=== PATIENT | male | born 1995 | race American Indian/Alaskan Native ===

== ENCOUNTER 2019-05-19 11:18 | Emergency (ER) | payer MEDICAID, OTHER ==
--- NOTE | 2019-05-19 12:27 | Emergency Department Report ---
Blank Doc - Documentation Documentation: This is a 23-year-old male that presents with vomiting and diarrhea. This initial assessment/diagnostic orders/clinical plan/treatment(s) is/are subject to change based on patient's health status, clinical progression and re- assessment by fellow clinical providers in the ED. Further treatment and workup at subsequent clinical providers discretion. Patient/guardians urged not to elope from the ED as their condition may be serious if not clinically assessed and managed. Initial orders include: 1- Patient sent to [facility] for further evaluation and treatment 2- labs 3- XR abd
[2019-05-19 13:02] LABS: Bilirubin,Urine NEG (Negative); Blood,Urine NEG (Negative); Color,Urine Yellow (Yellow); Mucus,Urine 2+ /HPF; Protein,Urine <15 mg/dL mg/dL (Negative); Urobilinogen,Urine < 2.0 mg/dL (<2.0)
--- NOTE | 2019-05-19 13:15 | XRay Report ---
PROCEDURE: ABDOMEN FLAT AND UPRIGHT WITH SINGLE VIEW CHEST HISTORY: Nausea and vomiting COMPARISON: None. TECHNIQUE: Supine and upright abdominal as well as single view chest radiographs obtained. FINDINGS: Lungs: The lungs are clear. The lung volumes are normal. Pleural Effusion: No evidence of a pleural effusion is seen. Pneumothorax: No evidence of pneumothorax is seen. Cardiac: The heart size is normal. Mediastinal silhouette: The mediastinal silhouette is normal. Hilar regions: The hilar regions are normal in appearance. Pulmonary vascularity: The pulmonary vascularity is normal in appearance. Trachea: The trachea is midline. Skeletal structures: The skeletal structures are normal in appearance. Support hardware: None. Additional findings: None. Bowel: The bowel gas pattern is normal in appearance. No evidence of obstruction is seen. No evidence of free air is identified. Calcifications: No abnormal calcifications over the kidneys or along the course of the ureters are se en. No phleboliths in the pelvis are seen. Osseous Structures: The skeletal structures are unremarkable in appearance. Additional findings: None. IMPRESSION: Normal abdomen and chest exams. Signer Name: Chava Celis MD Signed: 05/19/2019 1:11 PM Workstation Name: [id number]
[2019-05-19 13:34] LABS: Basophils % (Auto) 0.6 % (0.0-1.8); Eosinophils % (Auto) 0.7 % (0.0-4.3); Hematocrit 42.8 % (35.5-45.6); Hemoglobin 14.4 gm/dl (11.8-15.2); Lymphocytes # (Auto) 1.6 K/mm3 (1.2-5.4); Lymphocytes % (Auto) 33.4 % (13.4-35.0); Mean Corpuscular HGB Conc 34 % (32-34); Mean Corpuscular Volume 84 fl (84-94); Monocytes # (Auto) 0.3 K/mm3 (0.0-0.8); Monocytes % (Auto) 5.6 % (0.0-7.3); Platelet Count 206 K/mm3 (140-440); Red Blood Count 5.12 M/mm3 (3.65-5.03); Red Cell Distribution Width 14.7 % (13.2-15.2)
[2019-05-19 16:14] LABS: Alanine Aminotransferase 19 units/L (7-56); BUN/Creatinine Ratio 15; Blood Urea Nitrogen 12 mg/dL (9-20); Calcium 9.7 mg/dL (8.4-10.2); Hemolysis Index 23
[2019-05-19] MEDS ORDERED: ZOFRAN ODT PO ONE (16:43)
[2019-05-19] MEDS ORDERED: BENTYL PO ONE (16:43)
--- NOTE | 2019-05-19 16:45 | Emergency Department Report ---
Vomiting/Diarrhea - HPI Chief Complaint: Nausea/Vomiting/Diarrhea Stated Complaint: VOMITING Time Seen by Provider: 05/19/19 12:25 Duration: 2 Days Severity: mild Nausea/Vomiting Severity: Mild Diarrhea Severity: None Pain Severity: None Symptoms: No Watery Diarrhea, No Bloody diarrhea, No Fever, No Able to Tolerate Fluids, No Recent Unusual Foods, No Recent Untreated Water, No Recent use of Antibiotics, No Family w/ Similar Symptoms, No Contacts w/ Similar Symptoms, No Rash, No Hematuria, No Recent URI Symptoms Other History: 23 YO COMES TO ER WITH 2 DAY HX OF N/V. NO DIARRHEA. NO FEVER. NO CHILLS. NO N/V IN ER FOR THE LAST 5 HOURS. AMBULATORY WITH STABLE VS. ED Review of Systems ROS: Stated complaint: VOMITING Other details as noted in HPI Comment: All other systems reviewed and negative ED Past Medical Hx - Past Medical History Previous Medical History?: No Additional medical history: HEART MURMUR - Surgical History Past Surgical History?: Yes Additional Surgical History: umbilical hernia repair - Family History Family history: no significant - Social History Smoking Status: Never Smoker Substance Use Type: None - Medications Home Medications: Home Medications Medication Instructions Recorded Confirmed Last Taken Type Ondansetron [Zofran Odt] 4 mg PO Q8HR PRN #10 tab.rapdis 05/19/19 Unknown Rx Vomiting Diarrhea Exam - Exam General: Vital signs noted. No distress. Alert and acting appropriately. HEENT: No Pharyngeal Erythema Neck: No Adenopathy, No Rigidity Lungs: Yes Clear Lung Sounds, Yes Good Air Exchange, No Wheezes Heart exam: Regular: Yes, Murmur: No Abdomen: Tenderness: No, Peritoneal Signs: No, Distention: No, Hyperactive Bowel sounds: No Skin exam: Rash: No Neurologic: Alert and oriented, no deficits. Musculoskeletal: Unremarkable. ED Course Vital Signs 05/19/19 05/19/19 12:26 16:26 Temperature 98.3 F 97.5 F L Pulse Rate 62 52 L Respiratory 18 16 Rate Blood Pressure 117/74 Blood Pressure 116/54 [Left] O2 Sat by Pulse 99 100 Oximetry ED Medical Decision Making - Lab Data Result diagrams: 05/19/19 12:57 05/19/19 12:57 - Radiology Data Radiology results: report reviewed, image reviewed - Medical Decision Making Labs 05/19/19 05/19/19 05/19/19 12:40 12:57 12:57 WBC 4.9 RBC 5.12 H Hgb 14.4 Hct 42.8 MCV 84 MCH 28 MCHC 34 RDW 14.7 Plt Count 206 Lymph % (Auto) 33.4 [place] % (Auto) 5.6 Eos % (Auto) 0.7 Baso % (Auto) 0.6 Lymph # 1.6 [place] # 0.3 Eos # 0.0 Baso # 0.0 Seg Neutrophils % 59.7 Seg Neutrophils # 2.9 Sodium 139 Potassium 4.1 Chloride 100.0 Carbon Dioxide 24 Anion Gap 19 BUN 12 Creatinine 0.8 Estimated GFR > 60 BUN/Creatinine Ratio 15 Glucose 98 Calcium 9.7 Total Bilirubin 1.10 AST 23 ALT 19 Alkaline Phosphatase 70 Total Protein 8.1 Albumin 5.0 Albumin/Globulin Ratio 1.6 Lipase 18 Urine Color Yellow Urine Turbidity Clear Urine pH 6.0 Ur Specific [place] 1.027 Urine Protein <15 mg/dl Urine Glucose (UA) Neg Urine Ketones Neg Urine Blood Neg Urine Nitrite Neg Urine Bilirubin Neg Urine Urobilinogen < 2.0 Ur Leukocyte Esterase Neg Urine WBC (Auto) 1.0 Urine RBC (Auto) 3.0 U Epithel Cells (Auto) < 1.0 Urine Mucus 2+ Vital Signs 05/19/19 05/19/19 12:26 16:26 Temperature 98.3 F 97.5 F L Pulse Rate 62 52 L Respiratory 18 16 Rate Blood Pressure 117/74 Blood Pressure 116/54 [Left] O2 Sat by Pulse 99 100 Oximetry LABS NOTED UA NOTED MEDICATED WITH ZOFRAN AND TAKING PO VSS NO FEVER NON TOXIC DC HOME WITH PCP FOLLOW UP - Differential Diagnosis RO ACUTE ABD Critical care attestation.: If time is entered above; I have spent that time in minutes in the direct care of this critically ill patient, excluding procedure time. ED Disposition Clinical Impression: Gastroenteritis Disposition: DC-01 TO HOME OR SELFCARE Is pt being admited?: No Does the pt Need Aspirin: No Condition: Stable Instructions: Gastroenteritis (ED) Additional Instructions: HYDRATE WELL WITH WATER MEDS ORDERED TODAY BLAND DIET FOLLOW UP WITH PCP - REFERRAL BELOW IF PERSISTS Prescriptions: Ondansetron [Zofran Odt] 4 mg PO Q8HR PRN #10 tab.rapdis PRN Reason: Vomiting Referrals: LUZ LIU MD [Staff Physician] - 3-5 Days Forms: Work/School Release Form(ED) Time of Disposition: 16:43
[2019-05-19 17:44] VITALS: BP 112/62
== END 2019-05-19 17:44 | disposition home or self-care (01) ==
LOC: ED 11:18
DX: K52.9 Noninfective gastroenteritis and colitis, unspecified (principal)
CPT/HCPCS: 36415; 74022; 80053; 81001; 83690; 85025; Q0162